=== PATIENT | male | born 1995 | race African-American/Black ===

== ENCOUNTER 2022-11-08 15:58 | Emergency (ER) | payer OTHER ==
[~2022-11-08] VITALS: Ht 180.3 cm; Wt 123.4 kg
[2022-11-08] MEDS ORDERED: ADVAIR DISKUS1 DS2 IH (16:41)
[2022-11-08] MEDS ORDERED: SINGULAIR PO (16:42)
[2022-11-08] MEDS ORDERED: PROTONIX20 M1 PO (16:42)
[2022-11-08] MEDS ORDERED: ALBUTEROL SULF6.7 GM IN (16:42)
[2022-11-08 18:03] LABS: BASO # 0.03 K/mm3 (0.02-0.10); EOS # 0.04 K/mm3 (0.04-0.40); EOS % 0.2 % (0.0-4.0); HEMATOCRIT 52.2 % (42.0-52.0); LYMPH# 1.44 K/mm3 (1.50-4.00); MEAN CELL VOLUME 88 fl (78-100); MEAN CORPUSCULAR HEMOGLOBIN 27 pg (27-31); MEAN CORPUSCULAR HGB CONC 31 g/dL (33-37); MEAN PLATELET VOLUME 12.3 fl (7.4-10.4); MONO # 0.74 K/mm3 (0.20-0.80); NEU # 15.69 K/mm3 (1.40-6.50); PLATELET COUNT 275 K/mm3 (130-400); RED BLOOD COUNT 5.96 M/mm3 (4.20-5.60)
[2022-11-08 18:14] LABS: ALBUMIN 4.2 g/dL (3.5-5.0); POTASSIUM 4.7 mmol/L (3.5-5.1)
[2022-11-08 18:16] LABS: CALCIUM 9.7 mg/dL (8.3-10.5)
[2022-11-08 18:17] LABS: TOTAL PROTEIN 7.7 g/dL (6.4-8.3)
[2022-11-08 18:19] LABS: TOTAL BILIRUBIN 0.9 mg/dL (0.2-1.2)
[2022-11-08 19:25] LABS: PH-URINE 6.5 (5.0 - 8.0); URINE APPEARANCE CLEAR; URINE COLOR AMBER; URINE GLUCOSE NEGATIVE (NEGATIVE); URINE KETONE 2+ (NEGATIVE); URINE PROTEIN(semi-quant) 1+ (NEGATIVE)
[2022-11-08 19:26] LABS: URINE BILIRUBIN NEGATIVE (NEGATIVE); URINE BLOOD TRACE (NEGATIVE); URINE LEUKOCYTE ESTERASE NEGATIVE (NEGATIVE); URINE NITRATE NEGATIVE (NEGATIVE); URINE UROBILINOGEN NORMAL (NORMAL); URINE WBC 0-1 /hpf (0-3)
[2022-11-08] MEDS ORDERED: ZOFRAN ODT4 MG PO (20:00)
[2022-11-08 20:21] VITALS: BP 158/99
== END 2022-11-08 20:23 | disposition home or self-care (01) ==
LOC: ED 15:58
PROVIDERS: Family Medicine
DX: A08.4 Viral intestinal infection, unspecified (principal); R00.0 Tachycardia, unspecified
CPT/HCPCS: J2405; J7030